=== PATIENT | male | born 1990 ===

== ENCOUNTER 2016-12-06 10:03 | Emergency (ER) | payer SELFPAY ==
[2016-12-06 10:11] VITALS: BP 138/93; PULSE 87; RESP 18; TEMP 100.4; O2SAT 99
[2016-12-06] MEDS ORDERED: Sodium Chloride 0.9% 1,000 ML IV STA (10:47)
--- NOTE | 2016-12-06 11:02 | ED PDOC ---
HPI: Allergic Reaction Time Seen by Provider: 12/06/16 10:19 Chief Complaint (Nursing): Allergic Reaction History Per: Patient (developed acute onset of swelling around the eyes this morning after he took Cinthya-seltzer. Patient has allergy to NSAIDs but did not realize that aspirin is a main ingredient of Cinthya-[place]) History/Exam Limitations: no limitations Onset/Duration Of Symptoms: Sudden Onset Current Symptoms Are (Timing): Still Present Possible Cause: Medication (anti inflammatory allergy) Associated Symptoms: Swelling (eyes). denies: Dyspnea, Trouble Swallowing, Dizziness, Itching, Redness, Chest Pain Severity: Moderate Past Medical History Reviewed: Historical Data, Nursing Documentation, Vital Signs Vital Signs: Last Vital Signs Temp 100.4 F H 12/06/16 10:10 Pulse 87 12/06/16 10:10 Resp 18 12/06/16 10:10 BP 138/93 H 12/06/16 10:10 Pulse Ox 99 12/06/16 10:10 - Medical History PMH: No Chronic Diseases - Surgical History Surgical History: Cholecystectomy - Family History Family History: States: No Known Family Hx - Living Arrangements Living Arrangements: With Family - Social History Current smoker - smoking cessation education provided: No - Home Medications Home Medications: Ambulatory Orders Medication Instructions Recorded DiphenhydrAMINE [Benadryl] 1 - 2 tab PO Q6 #30 cap 12/06/16 Famotidine [Pepcid] 20 mg PO BID #28 tab 12/06/16 predniSONE [predniSONE Tab] 40 mg PO DAILY #10 tab 12/06/16 - Allergies Allergies/Adverse Reactions: Allergies Allergy/AdvReac Type Severity Reaction Status Date / Time aspirin Allergy SWELLING Verified 12/06/16 10:47 antonino Allergy ANAPHYLAXIS Uncoded 12/06/16 10:30 Review of Systems ROS Statement: Except As Marked, All Systems Reviewed And Found Negative Constitutional: Negative for: Fever, Chills ENT: Negative for: Mouth Pain, Mouth Swelling, Throat Pain, Throat Swelling Cardiovascular: Negative for: Chest Pain Respiratory: Negative for: Cough, Shortness of Breath Physical Exam - Reviewed Nursing Documentation Reviewed: Yes Vital Signs Reviewed: Yes - Physical Exam Appears: Positive for: Well, Non-toxic, No Acute Distress Head Exam: Positive for: ATRAUMATIC, NORMAL INSPECTION, NORMOCEPHALIC Skin: Positive for: Normal Color, Warm, DRY Eye Exam: Positive for: Normal appearance, EOMI, Periorbital swelling, Conjunctival injection (and chemosis). Negative for: Periorbital tenderness ENT: Positive for: Normal ENT Inspection Neck: Positive for: Normal Cardiovascular/Chest: Positive for: Regular Rate, Rhythm Respiratory: Positive for: CNT, Normal Breath Sounds Gastrointestinal/Abdominal: Positive for: Normal Exam, Bowel Sounds, Soft Back: Positive for: Normal Inspection Extremity: Positive for: Normal ROM Neurologic/Psych: Positive for: Alert, Oriented - ECG O2 Sat by Pulse Oximetry: 99 - Progress Re-evaluation Time: 12:16 (eye swelling much better. patient feeling better.) Condition: Improving,but remains with symptoms Disposition - Clinical Impression Clinical Impression: Allergic drug reaction - Patient ED Disposition Is Patient to be Admitted: No Doctor Will See Patient In The: Office Counseled Patient/Family Regarding: Diagnosis, Need For Followup, Rx Given - Disposition Referrals: [facility] [Outside] [facility] [Outside] Disposition: Routine/Home Disposition Time: 12:17 Condition: IMPROVED Prescriptions: DiphenhydrAMINE [Benadryl] 1 - 2 tab PO Q6 #30 cap Famotidine [Pepcid] 20 mg PO BID #28 tab predniSONE [predniSONE Tab] 40 mg PO DAILY #10 tab Instructions: General Allergic Reaction (ED) Print Language: ITALIAN - POA Present On Arrival: None
== END 2016-12-06 12:33 | disposition home or self-care (01) ==
LOC: H.ER 10:03
DX: T78.40XA Allergy, unspecified, initial encounter (principal)
CPT/HCPCS: 96374; 96375; 99282; J2930; J7040